=== PATIENT | female | born 1960 | race Caucasian/White ===

== ENCOUNTER 2016-09-17 18:24 | Emergency (ER) | payer OTHER ==
[~2016-09-17] VITALS: Ht 163.8 cm; Wt 74.9 kg
[~2016-09-17 18:24] MED LIST: MEDLIST; OXYC-57 PO
[2016-09-17 18:30] VITALS: TEMP 36.3; Ht 163.8 cm; Wt 74.9 kg
[2016-09-17] MEDS ORDERED: PROPARACAINE HCL 0.5% OP SOLN 15 ML BTL OP STA (18:32)
[2016-09-17] MEDS ORDERED: MULT-506 PO (18:35)
[2016-09-17] MEDS ORDERED: MISCCAP80 PO (18:37)
[2016-09-17] MEDS ORDERED: BOSWELLIA PO (18:37)
[2016-09-17] MEDS ORDERED: OXYC1TAB3 PO (19:03)
[2016-09-17] MEDS ORDERED: CIPROFLOXACIN HCL 0.3% OP SOLN 2.5 ML BTL OP ONE (19:15)
[2016-09-17] MEDS ORDERED: OXYCODONE IR HOME PACK PO ONE (19:15)
[2016-09-17 19:28] VITALS: BP 148/78; PULSE 72; O2SAT 97
--- NOTE | 2016-09-17 20:27 | EMERGENCY ROOM VISIT NOTE ---
ED Visit Note First contact with patient: 18:32 CHIEF COMPLAINT: Eye pain HISTORY OF PRESENT ILLNESS: This 56-year-old female patient presents to the emergency department complaining of pain in the right eye. The patient was riding a horse just prior to arrival. The patient states that the horse ran near trees, and she got struck along the right side of the face with pine needles. Her face and head feel fine, but she has notable pain of her right eye. There has been a constant moderate pain and irritation, redness and tearing in the eye. There is a mild blurring of vision at times and light bothers the eye. The vision has not been decreased over all. The patient does not wear contacts, but does wear glasses. The patient rates the pain as sharp and 8/10. The patient has not had previous injuries to this eye. Tetanus shot is reportedly up to date. REVIEW OF SYSTEMS: A 6 system review of systems was completed with positives and pertinent negatives listed in the HPI. ALLERGIES: No known allergies MEDICATIONS: See EMR PMH: See EMR SOCIAL HISTORY: Lives with family PHYSICAL EXAM: Vital Signs: Reviewed Nurse's notes, vital signs stable. Visual acuity 20/40 in the right and 20/10 in the left. GENERAL: This is a white female, in no acute distress, but who is uncomfortable from the eye problem. Well-developed well-nourished. EYES: The pupils are equal round and reactive to light and accommodation. EOMs are full and without tenderness. There is discharge of clear tears from the right eye which is injected. There is no foreign body visible under the eyelid even after lid eversion. Funduscopic exam reveals no hemorrhages, papilledema, or other abnormalities. No foreign body was seen embedded in the cornea under slit lamp exam. The cornea was clear and no hyphema was seen. Fluorescein uptake was observed with ultraviolet light significant for a corneal abrasion from 4:00 to 8:00. EMERGENCY DEPARTMENT COURSE: Physical exam and history were performed. Nursing notes and EMR were reviewed. The patient appears to have suffered injury to her right eye while riding a horse. Alcaine was placed and on examination the patient does have a corneal abrasion of the right eye. Clinically this correlates with her symptoms. The patient will be given a short course of OxyIR. She will be given Ciloxan drops with her first dose provided here. The patient needs to follow with an eye doctor on a short interval for recheck. She will be given information for the on-call town manager. She was otherwise invited back to the ER with any new, worsening, or concerning symptoms. Current/Historical Medications Scheduled Multivitamin (Multivitamin), 1 TAB PO DAILY Oxycodone Immediate Rel Tab (Roxicodone Ir), 1-2 TAB PO Q6 Probiotic Product (Probiotic), 1 CAP PO DAILY [Boswellia], 1 TAB PO DAILY Allergies Coded Allergies: No Known Allergies (Unverified , 09/17/16) Vital Signs Date Time Temp Pulse Resp B/P (MAP) Pulse Ox O2 Delivery O2 Flow Rate FiO2 09/17/16 19:28 72 20 148/78 97 09/17/16 18:30 36.3 73 18 97 Room Air Medications Administered Medications (Trade) Dose Ordered Sig/Sonal Route Start Time Stop Time Status Last Admin Dose Admin Oxycodone HCl (Roxicodone Immediate Rel 5MG Home Pack) 1 homepack UD ONCE PO 09/17/16 19:15 09/17/16 19:16 DC 09/17/16 19:09 1 HOMEPACK Ciprofloxacin HCl (Ciprofloxacin 0.3% Op Soln) 2 drops NOW ONCE OP 09/17/16 19:15 09/17/16 19:16 DC 09/17/16 19:08 2 DROPS Departure Information Impression Primary Impression: Corneal abrasion, right Dispostion Home / Self-Care Condition GOOD Prescriptions Oxycodone Immediate Rel Tab (ROXICODONE IR) 5 Mg Tab 1-2 TAB PO Q6, #15 TAB Initial treatment Prov: Zaire Saucedo PA-C 09/17/16 Referrals Willy Betts M.D. Forms HOME CARE DOCUMENTATION FORM, IMPORTANT VISIT INFORMATION Patient Instructions My [facility], ED Eye Injury Corneal Abrasion Additional Instructions You were seen and evaluated today on an emergency basis only. This is not a substitute for, or an effort to provide, complete comprehensive medical care. It is not possible to recognize and treat all injuries or illnesses in a single emergency department visit. For this reason it is recommended that you followup with your eye doctor in the next 1-2 days for recheck of your condition. We have provided the information for Dr. Betts locally to help if you are not established elsewhere. Use Ciloxan Eye Drops: Instill 1-2 drops into the conjunctival sac every 2 hours while awake for 2 days and 1-2 drops every 4 hours while awake for the next 5 days For baseline pain relief you may alternate ibuprofen and acetaminophen every 4 hours for pain control. Take 600 mg ibuprofen (Advil) and then 4 hours later take 1000 mg acetaminophen (Tylenol). Do not take more than 3000 mg acetaminophen in a single day. Oxycodone (OxyIR) 5mg: Take ONE or TWO pill every SIX hours for breakthrough pain. Avoid alcohol, operating machinery or dangerous equipment, working on ladders or roofs, DRIVING, or situations where being under the influence may be dangerous. It is recommended to use an auyn-nsi-bzechum stool softener such as Colace, 100mg twice daily while taking this medication to avoid constipation. You are welcome to return to the emergency department anytime with new, worsening, or concerning symptoms.
== END 2016-09-17 19:29 | disposition home or self-care (01) ==
LOC: C.EDB 18:24 → C.EDD 19:29
DX: S05.01XA Injury of conjunctiva and corneal abrasion without foreign body, right eye, initial encounter (principal); W22.8XXA Striking against or struck by other objects, initial encounter; Y93.52 Activity, horseback riding